=== PATIENT | female | born 1950 | race Hispanic/Latino ===

== ENCOUNTER 2017-12-18 11:15 | Inpatient (IN) | payer OTHER, MEDICARE ==
[~2017-12-18] VITALS: Ht 156.2 cm; Wt 106.0 kg
[2017-12-18 12:19] VITALS: BP 141/70
[2017-12-18 12:29] LABS: CREATININE 0.9 mg/dL (0.5-1.5); POTASSIUM 4.4 mmol/L (3.5-5.1)
[2017-12-18 13:02] LABS: APPEARANCE,URINE Clear (CLEAR); BILIRUBIN,URINE Negative (NEGATIVE); COLOR,URINE Yellow (YELLOW); GLUCOSE, URINE (UA) Negative (NEGATIVE); KETONES,URINE Negative (NEGATIVE); LEUKOCYTE ESTERASE ,URINE Trace (NEGATIVE); NITRATE,URINE Negative (NEGATIVE); OCCULT BLOOD,URINE Negative (NEGATIVE); PROTEIN,URINE Negative (NEGATIVE); UROBILINOGEN,URINE 0.2 mg/dL (0.2-1.0)
[2017-12-18 13:48] LABS: BACTERIA,URINE Rare /HPF (None Seen); RBC,URINE None Seen /HPF (0-1); WBC,URINE 0-1 /HPF (0-1)
[2017-12-18] MEDS ORDERED: LISI1TAB11 PO (14:01)
[2017-12-18] MEDS ORDERED: METF500S7 PO (14:01)
[2017-12-18] MEDS ORDERED: CLON0.1T PO (14:01)
[2017-12-18] MEDS ORDERED: AEC81 PO (14:01)
[2017-12-18] MEDS ORDERED: ATOR40TA71 PO (14:01)
[2017-12-21] VITALS (21 sets, daily range): BP systolic 133–172; BP diastolic 52–74
[2017-12-21] MEDS ORDERED: SODIUM CHLORIDE 0.9% 1000ML 1,000 ML IV ONE (12:41)
[2017-12-21] MEDS: CEFAZOLIN SODIUM 1 GM VIAL ONE ×2 (12:48→15:08)
[2017-12-21] MEDS ORDERED: CEFAZOLIN SODIUM 1 GM VIAL ONE ×2 (13:20→17:58)
[2017-12-21] MEDS ORDERED: TRANEXAMIC ACID 1000MG/10ML IV ONE (13:20)
[2017-12-21] MEDS ORDERED: BUPIVACAINE/EPI/PF 0.25% 30ML VIAL IJ ONE (13:20)
[2017-12-21] MEDS ORDERED: METOCLOPRAMIDE 10 MG/2 ML VIAL ONE ×2 (14:04→17:52)
[2017-12-21] MEDS ORDERED: KETOROLAC TROMETHAMINE 15MG/ML ONE (14:04)
[2017-12-21] MEDS ORDERED: ACETAMINOPHEN EXTRA STRENGTH 500 MG TABLET ONE (14:04)
[2017-12-21] MEDS ORDERED: OXYCODONE HCL 10 MG TAB.SR.12H PO ONE (14:05)
[2017-12-21] MEDS ORDERED: CELECOXIB 200 MG CAP ONE (14:05)
[2017-12-21] MEDS ORDERED: MIDAZOLAM HCL 1 MG/ML 2ML VIAL ONE (14:36)
[2017-12-21] MEDS ORDERED: LIDOCAINE PF 2% 5ML ABBOJECT ONE (14:39)
[2017-12-21] MEDS ORDERED: FENTANYL CITRATE PF 50 MCG/1 ML 2ML VIAL ONE (14:40)
[2017-12-21] MEDS ORDERED: ROPIVACAINE 0.5% 5MG/ML 30ML IJ ONE (14:40)
[2017-12-21] MEDS ORDERED: PROPOFOL 10 MG/ML 20ML VIAL IV ONE (14:40)
[2017-12-21] MEDS ORDERED: ROCURONIUM 10MG/1ML SYR 10 MG/ML ML ONE ×2 (14:40→15:08)
[2017-12-21] MEDS ORDERED: CEFAZOLIN SODIUM 1 GM VIAL IRRIG ONE (16:15)
[2017-12-21] MEDS ORDERED: SODIUM CHLORIDE 0.9% 10 ML VIAL ONE (16:30)
[2017-12-21] MEDS ORDERED: GLYCOPYRROLATE 1 MG/5 ML SYRINGE ONE (16:53)
[2017-12-21] MEDS ORDERED: NEOSTIGMINE 5MG/5ML SYR IV ONE (16:54)
[2017-12-21] MEDS ORDERED: POTASSIUM CHLORIDE 20 MEQ ERTAB PO PRN (17:15)
[2017-12-21] MEDS ORDERED: DiphenhydrAMINE HCL 50 MG/ML VIAL IVP PRN (17:15)
[2017-12-21] MEDS ORDERED: FERROUS FUMARATE 324 MG TABLET PO PRN (17:15)
[2017-12-21] MEDS ORDERED: TEMAZEPAM 15 MG CAPSULE PO PRN (17:15)
[2017-12-21] MEDS ORDERED: POTASSIUM CHLORIDE 20MEQ/100ML 100 ML IV PRN (17:15)
[2017-12-21] MEDS ORDERED: ONDANSETRON HCL 4 MG/2 ML VIAL IVP PRN (17:15)
[2017-12-21] MEDS ORDERED: POTASSIUM CHLORIDE 10% ELIXIR 20 MEQ/15 ML UDCUP PO PRN (17:15)
[2017-12-21] MEDS ORDERED: LIDOCAINE HCL-MPF 1% 2ML VIAL IVP PRN (17:15)
[2017-12-21] MEDS ORDERED: OXYCODONE HCL 5 MG TAB PO PRN (17:15)
[2017-12-21] MEDS: ACETAMINOPHEN EXTRA STRENGTH 500 MG TABLET PO SCH ×2 (17:15→23:32)
[2017-12-21] MEDS ORDERED: MEPERIDINE-PF 25 MG/ML SYG ONE (17:27)
[2017-12-21] MEDS: SODIUM CHLORIDE 0.9% 1000ML 1,000 ML IV SCH (19:32)
[2017-12-21] MEDS: METFORMIN HCL 500 MG TABLET PO SCH (20:11)
[2017-12-21] MEDS: CELECOXIB 200 MG CAP PO SCH (20:41)
[2017-12-21] MEDS: FAMOTIDINE 20MG TAB 20 MG TAB PO SCH (20:41)
[2017-12-21] MEDS: ASPIRIN 325 MG TABLET PO SCH (20:41)
[2017-12-21] MEDS: PREGABALIN 25 MG CAP PO SCH (20:42)
[2017-12-21] MEDS: ATORVASTATIN CALCIUM 40 MG TABLET PO SCH (20:44)
[2017-12-21] MEDS: CLONIDINE HCL 0.1 MG TABLET PO SCH (20:45)
[2017-12-21] MEDS: INSULIN HUMULIN R 100 UNIT/ML 3ML SQ SCH (20:50)
[2017-12-21] MEDS: KETOROLAC TROMETHAMINE 15MG/ML IV PRN (22:00)
[2017-12-21] MEDS: CEFAZOLIN 3GM /D5W 100ML 100 ML IV SCH (22:00)
[2017-12-22 04:46] VITALS: BP 93/46
[2017-12-22] MEDS: CEFAZOLIN 3GM /D5W 100ML 100 ML IV SCH (05:09)
[2017-12-22] MEDS: SODIUM CHLORIDE 0.9% 1000ML 1,000 ML IV SCH ×2 (05:10→13:05)
[2017-12-22 05:32] LABS: HEMATOCRIT 30.5 % (36-48); MEAN CORPUSCULAR HEMOGLOBIN 27.4 pg (27.0-33.0); MEAN CORPUSCULAR HGB CONC 32.7 g/dL (32.0-36.0); PLATELET COUNT (AUTO) 230 K/uL (130-400); RED BLOOD CELL COUNT(AUTO) 3.63 MIL/uL (4.00-5.50); RED CELL DISTRIBUTION WIDTH 14.1 % (11.0-15.5)
[2017-12-22 05:38] LABS: CREATININE 1.2 mg/dL (0.5-1.5); POTASSIUM 4.8 mmol/L (3.5-5.1)
[2017-12-22] MEDS: INSULIN HUMULIN R 100 UNIT/ML 3ML SQ SCH ×4 (06:10→21:00)
[2017-12-22 08:00] VITALS: BP 116/63
[2017-12-22] MEDS: POLYETHYLENE GLYCOL 3350 17 GM POWD.PACK PO SCH (08:38)
[2017-12-22] MEDS: ASPIRIN 325 MG TABLET PO SCH ×2 (08:39→20:21)
[2017-12-22] MEDS: PREGABALIN 25 MG CAP PO SCH ×2 (08:39→20:21)
[2017-12-22] MEDS: HYDROCHLOROTHIAZIDE 25 MG TABLET PO SCH ×2 (08:39→09:00)
[2017-12-22] MEDS: CALCIUM CARBONATE 500 MG TABLET PO PRN ×2 (08:39→20:28)
[2017-12-22] MEDS: CELECOXIB 200 MG CAP PO SCH ×2 (08:39→20:21)
[2017-12-22] MEDS: METFORMIN HCL 500 MG TABLET PO SCH ×2 (08:39→17:38)
[2017-12-22] MEDS: FAMOTIDINE 20MG TAB 20 MG TAB PO SCH ×2 (08:40→20:21)
[2017-12-22] MEDS: LISINOPRIL 20 MG TABLET PO SCH ×2 (08:40→09:00)
[2017-12-22] MEDS: ACETAMINOPHEN EXTRA STRENGTH 500 MG TABLET PO SCH ×2 (08:42→17:39)
[2017-12-22] MEDS: KETOROLAC TROMETHAMINE 15MG/ML IV PRN ×3 (08:43→22:04)
[2017-12-22 11:00] VITALS: BP 113/50
[2017-12-22] MEDS: TRAMADOL HCL 50 MG TABLET PO PRN ×2 (12:34→20:29)
[2017-12-22 16:00] VITALS: BP 123/58
[2017-12-22 20:17] VITALS: BP 153/69
[2017-12-22] MEDS: ATORVASTATIN CALCIUM 40 MG TABLET PO SCH (20:21)
[2017-12-22] MEDS: CLONIDINE HCL 0.1 MG TABLET PO SCH (20:22)
[2017-12-22 23:54] VITALS: BP 126/56
[2017-12-23] MEDS: ACETAMINOPHEN EXTRA STRENGTH 500 MG TABLET PO SCH ×3 (02:03→19:01)
[2017-12-23 04:50] VITALS: BP 136/70
[2017-12-23] MEDS: INSULIN HUMULIN R 100 UNIT/ML 3ML SQ SCH ×3 (06:28→16:30)
[2017-12-23] MEDS: KETOROLAC TROMETHAMINE 15MG/ML IV PRN (07:16)
[2017-12-23 08:00] VITALS: BP 141/62
[2017-12-23] MEDS: CELECOXIB 200 MG CAP PO SCH ×2 (08:53→21:07)
[2017-12-23] MEDS: FAMOTIDINE 20MG TAB 20 MG TAB PO SCH ×2 (08:53→21:07)
[2017-12-23] MEDS: ASPIRIN 325 MG TABLET PO SCH ×2 (08:53→21:07)
[2017-12-23] MEDS: METFORMIN HCL 500 MG TABLET PO SCH ×2 (08:53→16:47)
[2017-12-23] MEDS: HYDROCHLOROTHIAZIDE 25 MG TABLET PO SCH (08:54)
[2017-12-23] MEDS: LISINOPRIL 20 MG TABLET PO SCH (08:54)
[2017-12-23] MEDS: POLYETHYLENE GLYCOL 3350 17 GM POWD.PACK PO SCH (08:56)
[2017-12-23] MEDS: PREGABALIN 25 MG CAP PO SCH ×2 (09:00→21:07)
[2017-12-23] MEDS: OXYCODONE HCL 5 MG TAB PO PRN ×2 (10:18→16:48)
[2017-12-23 11:00] VITALS: BP 143/70
[2017-12-23 16:00] VITALS: BP 138/66
[2017-12-23] MEDS ORDERED: ASPI-1012 PO (19:58)
[2017-12-23] MEDS ORDERED: HYDR-309 PO (19:58)
[2017-12-23] MEDS: ATORVASTATIN CALCIUM 40 MG TABLET PO SCH (21:06)
[2017-12-23 21:07] VITALS: BP 138/65
[2017-12-23] MEDS: CLONIDINE HCL 0.1 MG TABLET PO SCH (21:07)
[2017-12-24] MEDS ORDERED: BISACODYL 10 MG SUPP.RECT RC PRN (17:15)
== END 2017-12-23 21:39 | DRG 470 ==
LOC: EDSTATUS 15:30 → DAHIP 12-21 11:45 → 4BH 12-21 17:34
PROVIDERS: ADMIT Orthopaedic Surgery; ATTEND Orthopaedic Surgery
PROC: 0SRC0J9 Replacement of Right Knee Joint with Synthetic Substitute, Cemented, Open Approach (ICD-10-PCS; principal; 2017-12-21 15:38)
DX: M17.11 Unilateral primary osteoarthritis, right knee (principal); E11.9 Type 2 diabetes mellitus without complications; I10 Essential (primary) hypertension; E78.5 Hyperlipidemia, unspecified; G89.29 Other chronic pain; J44.9 Chronic obstructive pulmonary disease, unspecified; Z80.3 Family history of malignant neoplasm of breast
CPT/HCPCS: 36415; 80048; 81001; 82948; 85027; 88305; 88311; 97039; A4218; J0690; J1885; J2001; J2175; J2250; J2405; J2704; J2710; J2765; J2795; J3010; J3490; J7030